=== PATIENT | female | born 1995 | race Caucasian/White ===

== ENCOUNTER 2022-04-25 15:46 | Inpatient (IN) | payer OTHER ==
[~2022-04-25] VITALS: Ht 160 cm; Wt 44.9 kg
[2022-04-25] MEDS ORDERED: SODIUM CHLORIDE 0.9% 250 ML IRRIG SOLUTION BOTTLE IRRIG ONE (16:15)
[2022-04-25] MEDS ORDERED: LORazepam 2 MG TABLET PO PRN (17:15)
[2022-04-25] MEDS ORDERED: OLANZapine 5 MG RAPDIS TABLET PO PRN (17:15)
[2022-04-25] MEDS ORDERED: ZOLPIDEM TARTRATE 10 MG TABLET PO PRN (17:15)
[2022-04-25] MEDS ORDERED: LORazepam 2 MG/ML VIAL IM ONE (18:15)
[2022-04-25] MEDS ORDERED: HALOPERIDOL LACTATE 5 MG/ML VIAL IM ONE (18:15)
[2022-04-25] MEDS ORDERED: DiphenhydrAMINE HCL 50 MG/ML VIAL IM ONE (18:15)
[2022-04-25 19:11] LABS: COVID AG,FIA SOURCE NASOPHARYNGEAL
[2022-04-25 20:01] LABS: BASOPHILS % (AUTO) 0.4 % (0.0-2.0); EOSINOPHILS % (AUTO) 0 % (1.0-6.0); HEMATOCRIT 38.2 % (36-46); HEMOGLOBIN 12.6 g/dL (12.0-16.0); LYMPHOCYTES # (AUTO) 1.3 K/uL (1.0-4.8); LYMPHOCYTES % (AUTO) 10.2 % (22.0-44.0); MEAN CORPUSCULAR HEMOGLOBIN 29.1 pg (26.0-34.0); MEAN CORPUSCULAR HGB CONC 33.1 G/dL (31.0-37.0); MEAN CORPUSCULAR VOLUME 88 fL (80-100); MONOCYTES # (AUTO) 0.7 K/uL (0.1-1.0); MONOCYTES % (AUTO) 5.5 % (2.0-9.0); NEUTROPHILS # (AUTO) 10.7 K/uL (1.8-7.7); NEUTROPHILS % (AUTO) 83.9 % (40.0-70.0); PLATELET COUNT (AUTO) 312 K/uL (150-450); RED BLOOD CELL COUNT(AUTO) 4.34 MIL/uL (4.00-5.20); RED CELL DISTRIBUTION WIDTH 14.4 % (11.5-14.5)
[2022-04-25 20:11] LABS: ANION GAP 17 mmol/L (8-16); CALCIUM, TOTAL 8.7 mg/dL (8.8-10.5); CARBON DIOXIDE 20 mmol/L (22-29); CHLORIDE 104 mmol/L (98-107); CREATININE 0.82 mg/dL (0.60-1.30); GLOMERULAR FILTR. RATE CALC > 60 mL/min (>60); GLUCOSE,RANDOM 76 mg/dL (70-110); SODIUM SERUM 141 mmol/L (136-145); UREA NITROGEN, BLOOD 7 mg/dL (7-18)
[2022-04-25 20:27] LABS: ALANINE AMINOTRANSFERASE 31 U/L (12-78); ALBUMIN 3.9 g/dL (3.4-5.0); ALKALINE PHOSPHATASE 89 U/L (46-116); ASPARTATE AMINOTRANSFERASE 38 U/L (15-37); BILIRUBIN,TOTAL 0.7 mg/dL (0.1-1.0); HCG,QUANTITATIVE < 1 mIU/mL (0-6); THYROID STIMULATING HORMONE 0.26 uIU/mL (0.36-3.74); TOTAL PROTEIN, SERUM 7.8 g/dL (6.4-8.2)
[2022-04-25] MEDS ORDERED: POTASSIUM CHLORIDE 20 MEQ ER TABLET PO ONE (21:15)
[2022-04-25] MEDS ORDERED: LOPERAMIDE HCL 2 MG CAPSULE PO PRN (23:30)
[2022-04-25] MEDS ORDERED: MAG HYDROX/AL HYDROX/SIMETH ES 30 ML SUSPENSION UDCUP PO PRN (23:30)
[2022-04-25] MEDS ORDERED: GuaiFENesin/D-METHORPHAN [SUGAR-FREE] 200-20MG/10 ML SYRUP UDCUP PO PRN (23:30)
[2022-04-25] MEDS ORDERED: HydrOXYzine PAMOATE 50 MG CAPSULE PO PRN (23:30)
[2022-04-25] MEDS ORDERED: ACETAMINOPHEN 325 MG TABLET PO PRN (23:30)
[2022-04-25] MEDS ORDERED: PROMETHAZINE HCL 25 MG TABLET PO PRN (23:30)
[2022-04-25] MEDS ORDERED: TUBERCULIN, PURIFIED PROTEIN DERIVATIVE 5 TU/0.1 ML SYRINGE ID ONE (23:30)
[2022-04-25] MEDS ORDERED: MAGNESIUM HYDROXIDE SUSPENSION 30 ML UDCUP PO PRN (23:30)
[2022-04-26 02:06] VITALS: BP 108/67
[2022-04-26] MEDS ORDERED: INFLUENZA VIRUS VACCINE QVS 2022-23 (6MO+)/PF 60 MCG/0.5 ML SYRINGE IM. ONE (03:00)
[2022-04-26 08:07] LABS: BASOPHILS % (AUTO) 0.7 % (0.0-2.0); EOSINOPHILS % (AUTO) 1.6 % (1.0-6.0); HEMATOCRIT 36.8 % (36-46); HEMOGLOBIN 12.7 g/dL (12.0-16.0); LYMPHOCYTES # (AUTO) 2.1 K/uL (1.0-4.8); LYMPHOCYTES % (AUTO) 29.2 % (22.0-44.0); MEAN CORPUSCULAR HEMOGLOBIN 29.7 pg (26.0-34.0); MEAN CORPUSCULAR HGB CONC 34.4 G/dL (31.0-37.0); MEAN CORPUSCULAR VOLUME 87 fL (80-100); MONOCYTES # (AUTO) 0.6 K/uL (0.1-1.0); MONOCYTES % (AUTO) 8.9 % (2.0-9.0); NEUTROPHILS # (AUTO) 4.3 K/uL (1.8-7.7); NEUTROPHILS % (AUTO) 59.6 % (40.0-70.0); PLATELET COUNT (AUTO) 289 K/uL (150-450); RED BLOOD CELL COUNT(AUTO) 4.26 MIL/uL (4.00-5.20); RED CELL DISTRIBUTION WIDTH 14.2 % (11.5-14.5)
[2022-04-26 08:08] LABS: APPEARANCE,URINE CLEAR (CLEAR); BILIRUBIN,URINE NEGATIVE (NEGATIVE); GLUCOSE, URINE (UA) 70-100 mg/dL (NEGATIVE); KETONES,URINE 40-60 mg/dL (NEGATIVE); LEUKOCYTE ESTERASE ,URINE NEGATIVE (NEGATIVE); NITRATE,URINE NEGATIVE (NEGATIVE); OCCULT BLOOD,URINE NEGATIVE (NEGATIVE); PH,URINE 6.5 (5.0-8.0); PROTEIN,URINE TRACE mg/dL (NEGATIVE); SPECIFIC GRAVITIY, URINE 1.009 (1.003-1.030); UROBILINOGEN,URINE <=1.0 mg/dL (<=1.0)
[2022-04-26 08:18] LABS: AMPHET/METH SCREEN,URINE NEGATIVE (NEGATIVE); BARBITURATE SCREEN, URINE NEGATIVE (NEGATIVE); BENZODIAZEPINES SCREEN,URINE NEGATIVE (NEGATIVE); CANNABINOID SCREEN,URINE POSITIVE (NEGATIVE); COCAINE SCREEN,URINE NEGATIVE (NEGATIVE); METHADONE SCREEN, URINE NEGATIVE (NEGATIVE); OPIATE SCREEN,URINE NEGATIVE (NEGATIVE); PHENCYCLIDINE SCREEN,URINE NEGATIVE (NEGATIVE)
[2022-04-26 08:49] LABS: CHOL/HDL RATIO 2.1 (3.9-5.7); FREE T4 (FREE THYROXINE) 1.8 ng/dL (0.76-1.46); THYROID STIMULATING HORMONE 0.54 uIU/mL (0.36-3.74)
[2022-04-26 08:57] LABS: BACTERIA,URINE Rare /HPF (None Seen); RBC,URINE None Seen /HPF (0-2); SQUAMOUS EPITHELIAL CELL,UR Rare /LPF (None Seen); WBC,URINE 0-2 /HPF (0-5)
[2022-04-26] MEDS: NALTREXONE HCL 50 MG TABLET PO SCH (09:00)
[2022-04-26] MEDS: FOLIC ACID 1 MG TABLET PO SCH (09:00)
[2022-04-26] MEDS: THIAMINE 100 MG TABLET PO SCH ×2 (09:00→17:00)
[2022-04-26] MEDS: MULTIVITAMINS WITH MINERALS, THERAPEUTIC TABLET PO SCH (09:00)
[2022-04-26] MEDS: FLUoxetine HCL 20 MG CAPSULE PO SCH (09:00)
[2022-04-26] MEDS: OMEGA-3/DHA/EPA/FISH OIL 1,000 MG CAPSULE PO SCH (09:00)
[2022-04-26 11:57] VITALS: BP 96/60
[2022-04-26 20:10] VITALS: BP 101/65
[2022-04-26] MEDS: OLANZapine 10 MG RAPDIS TABLET PO SCH (20:15)
[2022-04-26] MEDS: MELATONIN 5 MG TABLET PO SCH (20:15)
[2022-04-27 08:12] VITALS: BP 122/79
[2022-04-27] MEDS: FOLIC ACID 1 MG TABLET PO SCH (09:00)
[2022-04-27] MEDS: FLUoxetine HCL 20 MG CAPSULE PO SCH (09:00)
[2022-04-27] MEDS: MULTIVITAMINS WITH MINERALS, THERAPEUTIC TABLET PO SCH (09:00)
[2022-04-27] MEDS: NALTREXONE HCL 50 MG TABLET PO SCH (09:00)
[2022-04-27] MEDS: THIAMINE 100 MG TABLET PO SCH ×2 (09:00→16:01)
[2022-04-27] MEDS: OMEGA-3/DHA/EPA/FISH OIL 1,000 MG CAPSULE PO SCH (09:00)
[2022-04-27] MEDS ORDERED: LORazepam 2 MG/ML VIAL IM ONE (18:00)
[2022-04-27] MEDS ORDERED: HALOPERIDOL LACTATE 5 MG/ML VIAL IM ONE ×2 (18:00→18:15)
[2022-04-27] MEDS ORDERED: DiphenhydrAMINE HCL 50 MG/ML VIAL IM ONE (18:00)
[2022-04-27 20:12] VITALS: BP 114/69
[2022-04-27] MEDS: OLANZapine 10 MG RAPDIS TABLET PO SCH (20:37)
[2022-04-27] MEDS: MELATONIN 5 MG TABLET PO SCH (20:37)
[2022-04-28 08:08] VITALS: BP 116/75
[2022-04-28] MEDS: MULTIVITAMINS WITH MINERALS, THERAPEUTIC TABLET PO SCH (08:57)
[2022-04-28] MEDS: THIAMINE 100 MG TABLET PO SCH ×2 (08:57→17:00)
[2022-04-28] MEDS: NALTREXONE HCL 50 MG TABLET PO SCH (08:57)
[2022-04-28] MEDS: FOLIC ACID 1 MG TABLET PO SCH (08:57)
[2022-04-28] MEDS: OMEGA-3/DHA/EPA/FISH OIL 1,000 MG CAPSULE PO SCH (08:57)
[2022-04-28] MEDS: FLUoxetine HCL 20 MG CAPSULE PO SCH (08:57)
[2022-04-28 20:00] VITALS: BP 132/82
[2022-04-28] MEDS: OLANZapine 10 MG RAPDIS TABLET PO SCH (20:34)
[2022-04-28] MEDS: MELATONIN 5 MG TABLET PO SCH (20:34)
[2022-04-29 08:08] VITALS: BP 117/77
[2022-04-29] MEDS: FLUoxetine HCL 20 MG CAPSULE PO SCH (08:33)
[2022-04-29] MEDS: OMEGA-3/DHA/EPA/FISH OIL 1,000 MG CAPSULE PO SCH (08:45)
[2022-04-29] MEDS: FOLIC ACID 1 MG TABLET PO SCH (08:45)
[2022-04-29] MEDS: NALTREXONE HCL 50 MG TABLET PO SCH (08:46)
[2022-04-29] MEDS: MULTIVITAMINS WITH MINERALS, THERAPEUTIC TABLET PO SCH (08:46)
[2022-04-29] MEDS: THIAMINE 100 MG TABLET PO SCH ×2 (08:46→16:50)
[2022-04-29] MEDS ORDERED: PALIPERIDONE PALMITATE 234 MG/1.5 ML SYRINGE IM ONE (09:00)
[2022-04-29 20:01] VITALS: BP 134/82
[2022-04-29] MEDS: MELATONIN 5 MG TABLET PO SCH (20:57)
[2022-04-29] MEDS: OLANZapine 10 MG RAPDIS TABLET PO SCH (20:57)
[2022-04-30] MEDS: FOLIC ACID 1 MG TABLET PO SCH (08:32)
[2022-04-30] MEDS: FLUoxetine HCL 20 MG CAPSULE PO SCH (08:32)
[2022-04-30] MEDS: THIAMINE 100 MG TABLET PO SCH ×2 (08:32→16:51)
[2022-04-30] MEDS: OMEGA-3/DHA/EPA/FISH OIL 1,000 MG CAPSULE PO SCH (08:41)
[2022-04-30] MEDS: MULTIVITAMINS WITH MINERALS, THERAPEUTIC TABLET PO SCH (08:41)
[2022-04-30] MEDS: NALTREXONE HCL 50 MG TABLET PO SCH (09:01)
[2022-04-30 09:07] VITALS: BP 104/65
[2022-04-30 20:01] VITALS: BP 124/72
[2022-04-30] MEDS: MELATONIN 5 MG TABLET PO SCH (21:01)
[2022-04-30] MEDS: OLANZapine 10 MG RAPDIS TABLET PO SCH (21:02)
[2022-05-01 07:49] LABS: MAGNESIUM 1.8 mg/dL (1.80-2.40); PHOSPHORUS 3.2 mg/dL (2.5-4.9); POTASSIUM 3.8 mmol/L (3.5-5.1)
[2022-05-01] MEDS: FLUoxetine HCL 20 MG CAPSULE PO SCH (08:06)
[2022-05-01] MEDS: FOLIC ACID 1 MG TABLET PO SCH (08:07)
[2022-05-01] MEDS: THIAMINE 100 MG TABLET PO SCH ×2 (08:07→17:23)
[2022-05-01] MEDS: NALTREXONE HCL 50 MG TABLET PO SCH (08:07)
[2022-05-01 08:28] VITALS: BP 117/69
[2022-05-01] MEDS: OMEGA-3/DHA/EPA/FISH OIL 1,000 MG CAPSULE PO SCH (08:29)
[2022-05-01] MEDS: MULTIVITAMINS WITH MINERALS, THERAPEUTIC TABLET PO SCH (08:30)
[2022-05-01 10:06] LABS: GLUCOMETER DEV NAME(LOC) POC.BV
[2022-05-01] MEDS: OLANZapine 10 MG RAPDIS TABLET PO SCH (20:27)
[2022-05-01] MEDS: MELATONIN 5 MG TABLET PO SCH (20:27)
[2022-05-01 20:28] VITALS: BP 124/80
[2022-05-02 08:04] VITALS: BP 116/68
[2022-05-02] MEDS: MULTIVITAMINS WITH MINERALS, THERAPEUTIC TABLET PO SCH (08:47)
[2022-05-02] MEDS: FOLIC ACID 1 MG TABLET PO SCH (08:48)
[2022-05-02] MEDS: NALTREXONE HCL 50 MG TABLET PO SCH (08:48)
[2022-05-02] MEDS: THIAMINE 100 MG TABLET PO SCH ×2 (08:48→16:39)
[2022-05-02] MEDS: FLUoxetine HCL 20 MG CAPSULE PO SCH (08:48)
[2022-05-02] MEDS: OMEGA-3/DHA/EPA/FISH OIL 1,000 MG CAPSULE PO SCH (08:48)
[2022-05-02 09:51] LABS: GLUCOMETER DEV NAME(LOC) POC.BV
[2022-05-02] MEDS ORDERED: MELA5TAB40 PO (13:44)
[2022-05-02] MEDS ORDERED: NALT50TA PO (13:44)
[2022-05-02] MEDS ORDERED: OMEG-135 PO (13:44)
[2022-05-02] MEDS ORDERED: OLAN10TA26 PO (13:44)
[2022-05-02] MEDS ORDERED: FLUO20CA36 PO (13:44)
[2022-05-02 16:06] VITALS: BP 134/77
[2022-05-02 20:07] VITALS: BP 134/77
[2022-05-02] MEDS: MELATONIN 5 MG TABLET PO SCH (20:41)
[2022-05-02] MEDS: OLANZapine 10 MG RAPDIS TABLET PO SCH (20:42)
[2022-05-03] MEDS: FLUoxetine HCL 20 MG CAPSULE PO SCH (08:04)
[2022-05-03] MEDS: NALTREXONE HCL 50 MG TABLET PO SCH (08:04)
[2022-05-03] MEDS: THIAMINE 100 MG TABLET PO SCH (08:05)
[2022-05-03] MEDS: FOLIC ACID 1 MG TABLET PO SCH (08:05)
[2022-05-03 08:08] VITALS: BP 127/81
[2022-05-03] MEDS: OMEGA-3/DHA/EPA/FISH OIL 1,000 MG CAPSULE PO SCH (08:13)
[2022-05-03] MEDS: MULTIVITAMINS WITH MINERALS, THERAPEUTIC TABLET PO SCH (08:14)
[2022-05-03] MEDS ORDERED: PALIPERIDONE PALMITATE 156 MG/ML SYRINGE IM ONE (09:00)
[2022-05-03] MEDS ORDERED: OLAN5TAB94 PO (10:04)
[2022-05-03] MEDS ORDERED: FLUO20CA36 PO (10:04)
[2022-05-03] MEDS ORDERED: MELA5TAB40 PO (10:04)
[2022-05-03] MEDS ORDERED: NALT50TA6 PO (10:04)
[2022-05-03] MEDS ORDERED: OMEG-135 PO (10:04)
== END 2022-05-03 16:13 | disposition home or self-care (01) | DRG 885 ==
LOC: EMS 15:50 → B3A 21:00
PROVIDERS: ADMIT Psychiatry & Neurology Psychiatry; ATTEND Psychiatry & Neurology Psychiatry
DX: F25.9 Schizoaffective disorder, unspecified (principal); E87.6 Hypokalemia; Z20.822 Contact with and (suspected) exposure to COVID-19; Z55.9 Problems related to education and literacy, unspecified; Z59.9 Problem related to housing and economic circumstances, unspecified; Z63.9 Problem related to primary support group, unspecified; Z65.3 Problems related to other legal circumstances; Z78.1 Physical restraint status; Z91.14 Patient's other noncompliance with medication regimen
CPT/HCPCS: 80053; 80061; 80307; 81001; 83036; 83735; 84100; 84132; 84439; 84443; 84702; 85025; 86592; 99291; G0480; J1200; J1630; J2060; Q9967

== ENCOUNTER 2022-08-18 15:15 | Emergency (ER) | payer OTHER ==
[~2022-08-18] VITALS: Ht 160 cm; Wt 44.9 kg
[~2022-08-18 15:15] MED LIST: FLUO20CA36 PO; MELA5TAB40 PO; NALT50TA PO; NALT50TA6 PO; OLAN10TA26 PO; OLAN5TAB94 PO; OMEG-135 PO
[2022-08-18 18:38] LABS: BASOPHILS % (AUTO) 0.3 % (0.0-2.0); EOSINOPHILS % (AUTO) 0.1 % (1.0-6.0); HEMATOCRIT 39.8 % (36-46); HEMOGLOBIN 13.4 g/dL (12.0-16.0); LYMPHOCYTES # (AUTO) 0.9 K/uL (1.0-4.8); LYMPHOCYTES % (AUTO) 7.4 % (22.0-44.0); MEAN CORPUSCULAR HEMOGLOBIN 30.2 pg (26.0-34.0); MEAN CORPUSCULAR HGB CONC 33.6 G/dL (31.0-37.0); MEAN CORPUSCULAR VOLUME 90 fL (80-100); MONOCYTES # (AUTO) 0.8 K/uL (0.1-1.0); MONOCYTES % (AUTO) 6.3 % (2.0-9.0); NEUTROPHILS # (AUTO) 10.5 K/uL (1.8-7.7); NEUTROPHILS % (AUTO) 85.9 % (40.0-70.0); PLATELET COUNT (AUTO) 372 K/uL (150-450); RED BLOOD CELL COUNT(AUTO) 4.43 MIL/uL (4.00-5.20); RED CELL DISTRIBUTION WIDTH 13.8 % (11.5-14.5)
[2022-08-18 18:46] LABS: ANION GAP 16 mmol/L (8-16); CALCIUM, TOTAL 9.1 mg/dL (8.8-10.5); CARBON DIOXIDE 24 mmol/L (22-29); CHLORIDE 100 mmol/L (98-107); CREATININE 0.74 mg/dL (0.60-1.30); GLOMERULAR FILTR. RATE CALC > 60 mL/min (>60); GLUCOSE,RANDOM 83 mg/dL (70-110); SODIUM SERUM 140 mmol/L (136-145)
[2022-08-18 18:52] LABS: ALANINE AMINOTRANSFERASE 49 U/L (12-78); ALBUMIN 4.1 g/dL (3.4-5.0); ALKALINE PHOSPHATASE 156 U/L (46-116); ASPARTATE AMINOTRANSFERASE 30 U/L (15-37); BILIRUBIN,TOTAL 1.1 mg/dL (0.1-1.0); TOTAL PROTEIN, SERUM 8.2 g/dL (6.4-8.2)
[2022-08-18 18:58] LABS: PLATELET MORPHOLOGY COMMENT LARGE PLTS PRESENT
[2022-08-18 19:16] LABS: COVID AG,FIA SOURCE NASAL SWAB
[2022-08-18 19:45] LABS: SALICYLATE 0.8 mg/dL (2.8-20.0)
[2022-08-18 19:50] LABS: ACETAMINOPHEN < 2 mcg/mL (10-30)
[2022-08-18 20:04] VITALS: BP 110/64; PULSE 91; RESP 16; TEMP 97.8
[2022-08-18] MEDS: POTASSIUM CHLORIDE 10% 40 MEQ/30 ML LIQUID UDCUP PO ONE ×2 (20:04→20:24)
== END 2022-08-18 23:45 | disposition short-term general hospital (02) ==
LOC: EMS 15:24
DX: F20.9 Schizophrenia, unspecified (principal); Z20.822 Contact with and (suspected) exposure to COVID-19
CPT/HCPCS: 80053; 85025; 99285; G0480; G0481